=== PATIENT | male | born 1970 | race African-American/Black ===

== ENCOUNTER 2022-12-09 04:22 | Emergency (ER) | payer SELFPAY ==
[2022-12-09 04:33] VITALS: BP 164/81; PULSE 87; TEMP 98.3; BMI 28.0
[2022-12-09 06:01] VITALS: RESP 18
== END 2022-12-09 11:22 | disposition home or self-care (01) ==
LOC: JER 04:22
DX: R07.81 Pleurodynia (principal); M79.672 Pain in left foot; R45.851 Suicidal ideations; R45.850 Homicidal ideations; Y09 Assault by unspecified means
CPT/HCPCS: 99283-25; 99284-25